=== PATIENT | female | born 1955 | race Caucasian/White ===

== ENCOUNTER → 2022-04-04 | Day surgery (SDC) | payer BC | LOC: CSHMAMMO 07:35 | PROVIDERS: ATTEND Internal Medicine | PROC: 0HBT3ZX Excision of Right Breast, Percutaneous Approach, Diagnostic (ICD-10-PCS; principal; 2022-04-04) | DX: N60.11 Diffuse cystic mastopathy of right breast (principal); R92.1 Mammographic calcification found on diagnostic imaging of breast; Z80.3 Family history of malignant neoplasm of breast | CPT/HCPCS: 19081; 76098; 88305; G0279 ==